=== PATIENT | male | born 1935 | race Asian ===

== ENCOUNTER 2016-11-20 14:07 | Emergency (ER) | payer OTHER ==
[2016-11-20 17:24] VITALS: BP 163/74
== END 2016-11-20 17:30 | disposition home or self-care (01) ==
LOC: ED 14:07
DX: M54.5 Low back pain (principal); W17.89XA Other fall from one level to another, initial encounter; Y93.89 Activity, other specified; Y99.8 Other external cause status; Y92.89 Other specified places as the place of occurrence of the external cause